=== PATIENT | male | born 1990 ===

== ENCOUNTER 2025-03-18 08:05 | Emergency (ER) | payer SELFPAY ==
[2025-03-18 08:25] VITALS: BP 130/74
--- NOTE | 2025-03-18 09:12 | ED.GENMED ---
History of Present Illness
General
Chief Complaint: Social Service Referral
Source: patient
Exam Limitations: none
Time Seen by Provider: 03/18/25 09:07
History of Present Illness
History of Present Illness:
See MDM
Past History
Past History
ED Past Medical History: None
ED Past Surgical History: None
Social History
Tobacco: Non-smoker
Alcohol: None
Phy Exam
Physical Exam
Physical Exam:
See MDM
Course
Orders/Labs/Results
Orders:
Orders
03/18/25 09:08
Case Management Consult ONCE
Case Management Consult: Discharge Planning
Vital Signs
Initial and Last Documented VS:
Initial Vital Signs
Temp Pulse Resp BP Pulse Ox
98.2 F 82 16 130/74 98
03/18/25 08:25 03/18/25 08:25 03/18/25 08:25 03/18/25 08:25 03/18/25 08:25
Last Documented Vital Signs
Temp Pulse Resp BP Pulse Ox
98.2 F 82 16 130/74 98
03/18/25 08:25 03/18/25 08:25 03/18/25 08:25 03/18/25 08:25 03/18/25 09:14
MDM/Problems Addressed
Differential Diagnosis Includes:
Note:
CHIEF COMPLAINT(S)
Brought to the emergency department by police for possible fdc options.
HISTORY OF PRESENT ILLNESS
The patient is a 35-year-old male who was brought to the emergency department by police. He reports that he was just trying to stay warm and does not feel he needs help. The patient denies any acute distress. Patient states he is homeless.
SOCIAL DETERMINANTS OF HEALTH
The patient is homeless. Police were involved and called to bring him to the emergency department for discussion of possible fdc options. The patient indicates he does not feel in need of further assistance at this time.
PHYSICAL EXAM
General: Disheveled. Sitting in his chair comfortably. No acute distress
Skin: Warm, dry.
Head: Normocephalic, atraumatic
Neck: Appears supple, trachea midline.
Eyes, Ears, Nose, Mouth, and Throat: Moist mucous membranes
Cardiovascular: No signs of cyanosis
Respiratory: Respirations are non-labored.
Abdomen: Non-distended
Musculoskeletal: No deformities
Neurological: No focal neurological deficit observed.
Psychiatric: Cooperative, appropriate mood and affect.
PLAN
Provide food and water for the patient. Engage case management to evaluate and discuss fdc options with the patient.
MEDICAL DECISION MAKING
- Complexity of Data Reviewed: Chronic conditions affecting care [None mentioned]
- Risk: Care significantly affected by Social Determinants of Health: Homelessness.
DIAGNOSIS
Homelessness (Z59.0)
SUMMARY OF ENCOUNTER
The patient, a 35-year-old male, was brought to the emergency department by police after calling 911 due to being homeless and needing a warm place. Upon arrival, the patient stated he did not want any assistance and was in no acute distress. Food
and water were provided to him. social services analyst tried to engage him in contacting the housing authority and housing link, but he was not willing to make the call. He was given money for transportation via bus.
PLAN
Provide temporary relief by ensuring the patient has access to food, water, and transportation. Case management is involved to discuss potential fdc or housing options, though the patient is currently uninterested in pursuing these avenues.
MEDICAL DECISION MAKING
- Complexity of Data Reviewed: Chronic conditions affecting care [None mentioned]. Differential diagnosis includes homelessness.
- Data:
Category 2:
- Attempted discussion with social work faculty member for housing options.
- Risk:
Care significantly affected by Social Determinants of Health: Homelessness.
DIAGNOSIS
Homelessness (Z59.0)
*Pulse Oximetry
SaO2: 98
Oxygen Mode of Delivery: Room air
Patient hypoxic: no
*Critical Care Note
Total Time (30-74mins, 75-104mins- exclusive of procedures): Not Applicable
ED Attending Note
-
Portions of this chart may have been created with voice recognition software.� Occasional wrong word or��sound alike� substitutions may have occurred due to the inherent limitations of voice recognition software.
Discharge Plan
Departure
Patient Disposition: Home (Routine Discharge)
Date of Disposition: 03/18/25
Time of Disposition: 10:05
Patient with high blood pressure during this ER visit?: No
Discharge Problem:
Homelessness
Referrals:
UNKNOWN - PT NOT,INTERVIEWE [Family Provider]
Activity Restrictions/Additional Instructions:
Please return for any worsening symptoms.
You may return at any time if you have further concerns.
Please refer to the fdc information provided by the social work instructor.
Interventions
Interventions:
*General Assessment Last Done: 03/18/25 08:22
*Neglect/Abuse Screening Last Done: 03/18/25 08:22
*ED COVID-19 Vaccine History Last Done: 03/18/25 08:22
*ED Influenza Vaccine History Last Done: 03/18/25 08:22
[facility] Fall Risk Assessment Tool Last Done: 03/18/25 09:10
*Risk Screen - Suicide (C-SSRS) Last Done: 03/18/25 08:22
ED-Psychological Assessment Last Done: 03/18/25 09:10
Discharge Date and Time
Print Language: TURKISH
--- NOTE | 2025-03-18 09:15 | EDRN ---
Patient sitting in wheelchair with his hands covering his face and head down. Patient slowly responding to questions. Patient denies thoughts of suicide. Patient stated that he is originally from [place] and has been 'making my way up [place]'.
Patient refusing any services. Patient refusing anything to eat when offered. Waiting for case management to come see patient.
--- NOTE | 2025-03-18 10:14 | EDCM ---
Received consult, I met with pt in ED 34. Pt kept his face covered with ott during conversation. Pt is not from [facility], per ED nurse Daniel he told her he is from [place]. I offered him information for [facility], he
does not have a phone. He was appreciative of resources. I took him an ED phone and offered to help him call but he told me he just wants to leave. I encouraged him to eat the sandwich the ED gave him but he again said I just want to leave. I
updated Daniel and Dr Rondon. I gave Daniel a dollar to give him if he wants to use [facility]. She will send him to the lobby to wait for [facility].
--- NOTE | 2025-03-18 10:36 | EDRN ---
Patient refusing to take the sandwich given to him earlier. Patient refusing to take [facility] schedule/housing information and discharge instructions. Patient taken to lobby in wheelchair. [facility] bus pulled up to main lobby. Patient instructed to take
that [facility] bus. Patient walked towards the bus.
== END 2025-03-18 10:30 | disposition home or self-care (01) ==
LOC: EMR 08:05
PROVIDERS: EMERGENCY PHYSICIAN Student in an Organized Health Care Education/Training Program
DX: Z59.00 Homelessness unspecified (principal)
CPT/HCPCS: 99283